=== PATIENT | male | born 1955 | race Caucasian/White ===

== ENCOUNTER → 2017-02-03 | Outpatient (CLI) | payer SELFPAY ==
--- NOTE | 2017-02-03 17:11 | MRI ---
EXAM DESCRIPTION: Lumbar Spine w/o Contrast CLINICAL HISTORY: RADICULOPATHY LUMBAR REGION COMPARISON: None Available. TECHNIQUE: MRI of the lumbar spine is performed according to our usual protocol with axial and sagittal multi sequence imaging. FINDINGS: There is good alignment of the lumbar spine. Disc desiccation at all of the lumbar levels with marked disc space narrowing at L5-S1 is present with significant irregularity of the inferior endplate of L4 in the superior endplate of L2 suggesting old Schmorl's nodes. The disc signal intensity and contour is normal at T12-L1 with normal position of the conus and no intradural or intramedullary abnormalities. There is no vertebral pathology. Retroperitoneal and paraspinous structures show no specific abnormality. L1-2: Disc desiccation and narrowing of the disc with annular bulge and deformity of the superior L2 endplates suggesting Schmorl's node and/or prior injury with possibly a small area of retropulsed bone posteriorly on the right at the upper L2 level but without marrow edema or other changes to suggest an acute abnormality. Mild annular bulge and facet arthropathy without lateralizing herniation or severe stenosis with satisfactory L1 foramina L2-3: Disc desiccation with annular bulge and small central disc protrusion an AP diameter of the thecal sac borderline narrowed secondary to facet disease and prominent epidural lipomatosis as well as a disc bulge. Adequate right and left neural foramina. L3-4: Disc desiccation with very minimal annular prominence with mild facet arthropathy with adequate canal and neural foramina. L4-5: Disc desiccation with moderate facet arthropathy and annular bulge with small but definite right parasagittal disc protrusion effacing the right lateral recess with adequate left neural foramen and mildly narrowed right neural foramen. L5-S1: Disc space narrowing and disc desiccation with adequate canal and moderate facet arthropathy slightly worse on the right than the left with moderate encroachment upon the right ulnar five neural foramina and adequate left neural foramen. IMPRESSION: 1. Abnormal L1-2 level with the disc degeneration and narrowing and annular bulge and deformed superior L2 endplate and asymmetry of the posterior margin of the L2 vertebral body most suggestive of possibly an old compression deformity without marrow edema at this time and mild compromise of the central canal anteriorly on the right at the upper L2 level. 2. Small central disc protrusion L2-3 with borderline AP diameter canal diameter. This is accentuated by facet arthropathy and epidural lipomatosis. 3. Facet arthropathy annular bulge and small right parasagittal disc protrusion at L4-5 with compromise of the right lateral recess and to a lesser degree right L4 neural foramen. No significant central stenosis 4. Advanced disc narrowing and degeneration L5-S1 with adequate canal and right greater than left facet arthropathy with compromise of the right elbow five neural foramen. Electronically signed by: Brennan Adan MD 02/03/2017 5:10 PM CDT
== END | disposition home or self-care (01) ==
LOC: MRI 12:59
PROVIDERS: ATTEND Nurse Practitioner Family
DX: M54.16 Radiculopathy, lumbar region (principal)

== ENCOUNTER → 2017-04-03 | Outpatient (CLI) | payer OTHER ==
--- NOTE | 2017-04-07 15:48 | NM ---
EXAM DESCRIPTION: Bone Scan, Whole Body CLINICAL HISTORY: 61 years Male, LOW BACK PAIN, CHRONIC PAIN SYNDROME COMPARISON: MRI lumbar spine February 03, 2017. TECHNIQUE: The patient received 26.2 mCi technetium 99m MDP intravenously. Delayed spot images of the whole body are obtained. FINDINGS: No focal abnormal increased activity seen in the skull, ribs, pelvis. Mild increased activity in the mid lumbar spine at the L2-3 and L3-4 level is seen. Spine is otherwise unremarkable. Visualized lower extremities are unremarkable. Normal uptake and excretion of the radiopharmaceutical by the kidneys into the urinary bladder are seen. IMPRESSION: Mild increased uptake of radiopharmaceutical in the mid lumbar spine could represent disc degenerative changes. Electronically signed by: Padilla Vaz MD 04/07/2017 3:47 PM CDT
== END | disposition home or self-care (01) ==
LOC: NM 08:53
PROVIDERS: ATTEND Physician Assistant
DX: M54.5 Low back pain (principal); G89.4 Chronic pain syndrome; G57.02 Lesion of sciatic nerve, left lower limb

== ENCOUNTER 2017-06-17 17:57 | Emergency (ER) | payer OTHER ==
[2017-06-17 18:25] VITALS: TEMP 98.9; O2SAT 93
[2017-06-17] MEDS ORDERED: HYDROmorphone HCL INJ 2 MG/ML VIAL IM ONE (18:53)
[2017-06-17] MEDS ORDERED: KETOROLAC TROMETHAMINE INJ 60 MG/2 ML VIAL IM ONE (18:53)
--- NOTE | 2017-06-17 19:17 | ED.PDOC ---
History of Present Illness - General Chief Complaint: Back Pain or Injury Stated Complaint: severe back pain Time Seen by Provider: 06/17/17 18:52 Source: patient - History of Present Illness Initial Comments: PT PRESENTS TO ED FOR EXACERBATION OF CHRONIC BACK PAIN AND STATES HE IS OUT OF HIS PAIN MEDICATION. PT DENIES ANY NEW SYMPTOMS OR INJURIES. Timing/Duration: other - CHRONIC PAIN Quality/Severity: severe, burning Back Pain Location: T-spine, lumbar spine Back Pain Radiation: buttocks, upper legs, lower legs Method of Injury/Prior Injury: prior injury Improving Factors: nothing Worsening Factors: nothing Allergies/Adverse Reactions: Allergies NO KNOWN ALLERGY Allergy (Verified 06/17/17 18:25) Home Medications: Ambulatory Orders HYDROcodone 7.5MG/APAP 325MG [[place] 7.5/325] 1 ea PO Q4H 06/17/17 Irbesartan [Avapro] 300 mg PO DAILY 06/17/17 Metoprolol Tartrate 25 mg PO DAILY 06/17/17 Pregabalin [Lyrica] 75 mg PO BID 06/17/17 Review of Systems - Review of Systems Constitutional: Denies: chills, fever Respiratory: Denies: cough, short of breath Cardiology: Denies: chest pain, palpitations Musculoskeletal: States: see HPI, back pain, muscle stiffness Past Medical History (General) - Patient Medical History Hx Seizures: No Hx Stroke: No Hx Dementia: No Hx Asthma: No Hx of COPD: No Hx Cardiac Disorders: No Hx Congestive Heart Failure: No Hx Pacemaker: No Hx Hypertension: Yes Hx Thyroid Disease: No Hx Diabetes: No Hx Gastroesophageal Reflux: No Hx Renal Disease: No Hx Cancer: No Hx of HIV: No Hx Hepatitis C: No Hx MRSA: No Surgical History: other - Vaccination History Hx Tetanus, Diphtheria Vaccination: No Hx Influenza Vaccination: No Hx Pneumococcal Vaccination: No - Social History Hx Tobacco Use: No Hx Chewing Tobacco Use: No Hx Alcohol Use: Yes Hx Substance Use: No Hx Substance Use Treatment: No Hx Depression: No Hx Physical Abuse: No Hx Emotional Abuse: No Hx Suspected Abuse: No - Activities of Daily Living Hospice Agency (if applicable):: None - Female History Patient : No Family Medical History - Family History Mother Hx Family Hypertension: Yes Hx Cardiac Disease: Yes Departure - Departure Clinical Impression: Chronic back pain Time of Disposition: 19:17 Disposition: Discharge to Home or Self Care Condition: Good Departure Forms: ED Discharge - Pt. Copy, Patient Portal Self Enrollment Instructions: DI for Back Pain With Sciatica Referrals: Susan Zavala, [employer] [Primary Care Provider] - 1-2 Weeks Home Medications: Ambulatory Orders HYDROcodone 7.5MG/APAP 325MG [[place] 7.5/325] 1 ea PO Q4H 06/17/17 Irbesartan [Avapro] 300 mg PO DAILY 06/17/17 Metoprolol Tartrate 25 mg PO DAILY 06/17/17 Pregabalin [Lyrica] 75 mg PO BID 06/17/17
[2017-06-17 19:42] VITALS: BP 122/81
== END 2017-06-17 19:42 | disposition home or self-care (01) ==
LOC: ER 17:57
DX: G89.29 Other chronic pain (principal); M54.9 Dorsalgia, unspecified; I10 Essential (primary) hypertension
CPT/HCPCS: J1170; J1885

== ENCOUNTER 2017-06-23 17:49 | Emergency (ER) | payer SELFPAY ==
[2017-06-23 18:33] VITALS: TEMP 98.5; O2SAT 96
[2017-06-23] MEDS ORDERED: methylPREDNISolone SODIUM SUC 125 MG/2 ML VIAL IM ONE (18:38)
[2017-06-23] MEDS ORDERED: HYDROmorphone HCL INJ 2 MG/ML VIAL IM ONE (18:38)
--- NOTE | 2017-06-23 18:42 | ED.PDOC ---
History of Present Illness - General Chief Complaint: Back Pain or Injury Stated Complaint: Upper and lower back pain x several weeks Time Seen by Provider: 06/23/17 17:56 Source: patient, RN notes reviewed, Vital Signs reviewed Exam Limitations: no limitations - History of Present Illness Initial Comments: Patient returns to ER with c/o chronic back pain. He was seeing a pain management doctor in [place] but was dismissed from the clinic @ the beginning of May. Per patient he was dismissed because the doctor is lazy and did not want to do anything to help him. Reports he checked with PCP who refused to refer him to a new pain management doctor. He was seen here 06/17 and given Dilaudid and Toradol. He does not take OTC medications due to a GI bleed ~ 1 year ago. Pain is in his low back and radiates down his legs. He has chronic numbness on the lateral aspect of his L thigh and calf. Timing/Duration: constant - for 9 years Quality/Severity: severe, dullness, radiation Back Pain Location: lumbar spine, paraspinous muscles, other - bilateral sciatic notches Back Pain Radiation: lower legs Method of Injury/Prior Injury: prior injury Improving Factors: nothing Worsening Factors: movement Associated Symptoms: muscle spasms, numbness in legs/feet, lower back pain Allergies/Adverse Reactions: Allergies NO KNOWN ALLERGY Allergy (Verified 06/17/17 18:25) Home Medications: Ambulatory Orders Irbesartan [Avapro] 300 mg PO DAILY 06/17/17 Metoprolol Tartrate 25 mg PO DAILY 06/17/17 Pregabalin [Lyrica] 75 mg PO BID 06/17/17 Acetamin W/Cod #3 Tab [Tylenol w/CODEINE #3] 2 ea PO Q4HR PRN #15 tab 06/23/17 Methylprednisolone [Medrol Dose Luis Manuel] 4 mg PO DAILY #1 pack 06/23/17 hydrALAZINE HCl [(None)] 25 mg PO BID PRN 06/23/17 Review of Systems - Review of Systems Constitutional: States: no symptoms reported Respiratory: States: no symptoms reported Cardiology: States: no symptoms reported Musculoskeletal: States: see HPI, back pain Skin: States: no symptoms reported Neurological: States: see HPI, numbness, pre-existing deficit All other Systems: No Change from Baseline Past Medical History (General) - Patient Medical History Hx Seizures: No Hx Stroke: No Hx Dementia: No Hx Asthma: No Hx of COPD: No Hx Cardiac Disorders: No Hx Congestive Heart Failure: No Hx Pacemaker: No Hx Hypertension: Yes Hx Thyroid Disease: No Hx Diabetes: No Hx Gastroesophageal Reflux: No Hx Renal Disease: No Hx Cancer: No Hx of HIV: No Hx Hepatitis C: No Hx MRSA: No Surgical History: noncontributory - Vaccination History Hx Tetanus, Diphtheria Vaccination: Yes Hx Influenza Vaccination: No Hx Pneumococcal Vaccination: No - Social History Hx Tobacco Use: No Hx Chewing Tobacco Use: No Hx Alcohol Use: No Hx Substance Use: No Hx Substance Use Treatment: No Hx Depression: No Feels Threatened In Home Enviroment: No Feels Threatened In a Relationship: No Hx Physical Abuse: No Hx Emotional Abuse: No Hx Suspected Abuse: No - Female History Patient : No Family Medical History - Family History Mother Hx Family Hypertension: Yes Hx Cardiac Disease: Yes Physical Exam - Physical Exam General Appearance: Alert, No apparent distress, Obese, Well Developed, Well Groomed, Well Hydrated, Well Nourished, Other - uncomfortable Cardiovascular/Respiratory: regular rate, rhythm, no M/R/G, normal breath sounds , no respiratory distress Back Exam: muscle spasm - bilateral lumbar paraspinous muscles, vertebral tenderness - Upper lumbar, other - tender bilateral sciatic notches Neurologic: alert, normal mood/affect - except is irritable, oriented x 3, sensory deficit - L lateral thigh and calf, other - + straight leg raise bilaterally Skin Exam: normal color, warm/dry Comments: Vital Signs 06/23/17 18:28 Temperature 98.5 F Pulse Rate [L 117 H Arm] Respiratory 20 Rate Blood Pressure 112/82 [L Arm] O2 Sat by Pulse 96 Oximetry Progress - Progress Progress: 06/23/17 18:45 Will give Solu-Medrol 125mg IM and Dilaudid 2mg IM 06/23/17 19:24 Patients ride is here and he is ready to go. - EKG/XRAY/CT CT Ordered: No CT Interpretation Call Back: No Departure - Departure Clinical Impression: Chronic back pain Qualifiers: Back pain location: low back pain Back pain laterality: bilateral Sciatica presence: with sciatica Sciatica laterality: bilateral sciatica Qualified Code(s ): M54.42 - Lumbago with sciatica, left side; M54.41 - Lumbago with sciatica, right side; G89.29 - Other chronic pain Time of Disposition: 19:25 Disposition: Discharge to Home or Self Care Condition: Good Departure Forms: ED Discharge - Pt. Copy, Patient Portal Self Enrollment Instructions: DI for Back Pain With Sciatica Diet: resume usual diet Activity: increase activity as tolerated Prescriptions: Acetamin W/Cod #3 Tab [Tylenol w/CODEINE #3] 2 ea PO Q4HR PRN #15 tab PRN Reason: Moderate To Severe Pain Methylprednisolone [Medrol Dose Luis Manuel] 4 mg PO DAILY #1 pack Home Medications: Ambulatory Orders Irbesartan [Avapro] 300 mg PO DAILY 06/17/17 Metoprolol Tartrate 25 mg PO DAILY 06/17/17 Pregabalin [Lyrica] 75 mg PO BID 06/17/17 Acetamin W/Cod #3 Tab [Tylenol w/CODEINE #3] 2 ea PO Q4HR PRN #15 tab 06/23/17 Methylprednisolone [Medrol Dose Luis Manuel] 4 mg PO DAILY #1 pack 06/23/17 hydrALAZINE HCl [(None)] 25 mg PO BID PRN 06/23/17
[2017-06-23 19:31] VITALS: BP 114/84
== END 2017-06-23 19:31 | disposition home or self-care (01) ==
LOC: ER 17:49
DX: M54.42 Lumbago with sciatica, left side (principal); M54.41 Lumbago with sciatica, right side; G89.29 Other chronic pain; I10 Essential (primary) hypertension
CPT/HCPCS: J1170; J2930

== ENCOUNTER 2017-06-29 13:21 | Emergency (ER) | payer SELFPAY ==
[2017-06-29 13:41] VITALS: TEMP 97.8
--- NOTE | 2017-06-29 13:52 | ED.PDOC ---
History of Present Illness - General Chief Complaint: Back Pain or Injury Stated Complaint: low back pain Time Seen by Provider: 06/29/17 13:23 Source: patient, RN notes reviewed, Vital Signs reviewed Exam Limitations: no limitations - History of Present Illness Initial Comments: Patient here again for his chronic back pain. This is his 3rd ER visit in 12 days. Reports he is to see his new pain management doctor on 07/08/17 in [place]. He is out of pain medication so returned to ER. Reports pain is "same ol shit" and pain is 15/10. Timing/Duration: other - Chronic pain Quality/Severity: severe Back Pain Location: lumbar spine Back Pain Radiation: lower legs Method of Injury/Prior Injury: other - Chronic pain Improving Factors: medication Worsening Factors: movement Associated Symptoms: tingling in legs/feet, lower back pain Allergies/Adverse Reactions: Allergies NO KNOWN ALLERGY Allergy (Verified 06/17/17 18:25) Home Medications: Ambulatory Orders Irbesartan [Avapro] 300 mg PO DAILY 06/17/17 Metoprolol Tartrate 25 mg PO DAILY 06/17/17 Pregabalin [Lyrica] 75 mg PO BID 06/17/17 Acetamin W/Cod #3 Tab [Tylenol w/CODEINE #3] 2 ea PO Q4HR PRN #15 tab 06/23/17 Methylprednisolone [Medrol Dose Luis Manuel] 4 mg PO DAILY #1 pack 06/23/17 hydrALAZINE HCl [(None)] 25 mg PO BID PRN 06/23/17 Acetaminophen W/ Codeine [Tylenol W/ CODEINE #3] 1 - 2 ea PO Q6HR PRN #30 06/29 Review of Systems - Review of Systems Constitutional: States: no symptoms reported Respiratory: States: no symptoms reported Cardiology: States: no symptoms reported Musculoskeletal: States: back pain Skin: States: no symptoms reported Neurological: States: tingling - Unchanged All other Systems: No Change from Baseline Past Medical History (General) - Patient Medical History Hx Seizures: No Hx Stroke: No Hx Dementia: No Hx Asthma: No Hx of COPD: No Hx Cardiac Disorders: No Hx Congestive Heart Failure: No Hx Pacemaker: No Hx Hypertension: Yes Hx Thyroid Disease: No Hx Diabetes: No Hx Gastroesophageal Reflux: No Hx Renal Disease: No Hx Cancer: No Hx of HIV: No Hx Hepatitis C: No Hx MRSA: No - Vaccination History Hx Tetanus, Diphtheria Vaccination: Yes Hx Influenza Vaccination: No Hx Pneumococcal Vaccination: No - Social History Hx Tobacco Use: No Hx Chewing Tobacco Use: No Hx Alcohol Use: No Hx Substance Use: No Hx Substance Use Treatment: No Hx Depression: No Hx Physical Abuse: No Hx Emotional Abuse: No Hx Suspected Abuse: No - Female History Patient : No Family Medical History - Family History Mother Hx Family Hypertension: Yes Hx Cardiac Disease: Yes Physical Exam - Physical Exam General Appearance: Agitated - and agressive, Obese, Well Developed, Well Groomed, Well Hydrated, Well Nourished Cardiovascular/Respiratory: regular rate, rhythm, no M/R/G, normal breath sounds , no respiratory distress Back Exam: muscle spasm, vertebral tenderness Extremity Exam: normal range of motion, non-tender, no pedal edema Neurologic: alert, oriented x 3 Skin Exam: normal color, warm/dry Progress - Progress Progress: 06/29/17 13:53 Advised patient this is the last time I will give him narcotics in the ER. He got angry and reports he does not want to need the pain medication. He has an appt with Dr. Ponce in [place] on 07/08/17 for pain management. Departure - Departure Clinical Impression: Chronic back pain Qualifiers: Back pain location: low back pain Back pain laterality: bilateral Sciatica presence: with sciatica Sciatica laterality: bilateral sciatica Qualified Code(s ): M54.42 - Lumbago with sciatica, left side; M54.41 - Lumbago with sciatica, right side; G89.29 - Other chronic pain Time of Disposition: 14:04 Disposition: Discharge to Home or Self Care Condition: Good Departure Forms: ED Discharge - Pt. Copy, Patient Portal Self Enrollment Instructions: DI for Back Pain With Sciatica Diet: resume usual diet Activity: increase activity as tolerated Prescriptions: Acetaminophen W/ Codeine [Tylenol W/ CODEINE #3] 1 - 2 ea PO Q6HR PRN #30 PRN Reason: Moderate To Severe Pain Home Medications: Ambulatory Orders Irbesartan [Avapro] 300 mg PO DAILY 06/17/17 Metoprolol Tartrate 25 mg PO DAILY 06/17/17 Pregabalin [Lyrica] 75 mg PO BID 06/17/17 Acetamin W/Cod #3 Tab [Tylenol w/CODEINE #3] 2 ea PO Q4HR PRN #15 tab 06/23/17 Methylprednisolone [Medrol Dose Luis Manuel] 4 mg PO DAILY #1 pack 06/23/17 hydrALAZINE HCl [(None)] 25 mg PO BID PRN 06/23/17 Acetaminophen W/ Codeine [Tylenol W/ CODEINE #3] 1 - 2 ea PO Q6HR PRN #30 06/29 Additional Instructions: Keep scheduled follow up with Dr. Ponce on 07/08/17
[2017-06-29] MEDS ORDERED: HYDROmorphone HCL INJ 2 MG/ML VIAL IM ONE (13:54)
[2017-06-29 14:25] VITALS: BP 153/70; O2SAT 93
== END 2017-06-29 14:24 | disposition home or self-care (01) ==
LOC: ER 13:21
DX: M54.42 Lumbago with sciatica, left side (principal); M54.41 Lumbago with sciatica, right side; I10 Essential (primary) hypertension; G89.29 Other chronic pain; Z79.899 Other long term (current) drug therapy

== ENCOUNTER → 2017-11-14 | Outpatient (CLI) | payer OTHER | LOC: LAB.O 11:19 | PROVIDERS: ATTEND Internal Medicine Cardiovascular Disease | DX: I10 Essential (primary) hypertension (principal); E78.2 Mixed hyperlipidemia; I50.33 Acute on chronic diastolic (congestive) heart failure ==

== ENCOUNTER → 2019-05-13 | Outpatient (CLI) | payer OTHER ==
--- NOTE | 2019-05-13 16:28 | RAD ---
EXAM DESCRIPTION: Lumbar Spine 3 Views CLINICAL HISTORY: SPONDYLOSIS COMPARISON: Lumbar spine MRI 02/03/2017. TECHNIQUE: AP/lateral/coned-down lateral FINDINGS: Examination is limited due to patient's body habitus. Conventional five nonrib-bearing lumbar segments. Mild dextrocurvature of the upper lumbar spine. The lumbar spine alignment is otherwise intact without significant listhesis. Chronic appearing L2 superior endplate depression is similar compared to prior examination. The vertebral body heights are otherwise relatively maintained. No displaced fracture or significantly appearing subluxation is seen. Moderate multilevel degenerative changes with intervertebral disc height loss, endplate sclerosis and marginal osteophyte in addition to bilateral facet arthrosis are most pronounced at L4-L5 and L5-S1. IMPRESSION: No radiographic evidence of displaced lumbar spine fracture or significantly appearing subluxation. Moderate lumbar spine degenerative changes are most pronounced at L4-5 and L5-S1. Electronically signed by: Dipak Leone DO 05/13/2019 4:27 PM CDT
--- NOTE | 2019-05-13 16:30 | RAD ---
EXAM DESCRIPTION: Lumbar Spine,Flex/Ext CLINICAL HISTORY: SPONDYLOSIS COMPARISON: Lumbar spine radiograph same day. FINDINGS/IMPRESSION: Attempted flexion-extension views of the lumbar spine is extremely limited due to patient positioning and technique. No significantly appearing subluxation is identified. Electronically signed by: Dipak Leone DO 05/13/2019 4:29 PM CDT
== END ==
LOC: RAD 14:06
PROVIDERS: ATTEND Nurse Practitioner Family
DX: M47.814 Spondylosis without myelopathy or radiculopathy, thoracic region (principal); M47.27 Other spondylosis with radiculopathy, lumbosacral region